=== PATIENT | female | born 1960 | race Caucasian/White ===

== ENCOUNTER → 2020-08-10 01:38 | Outpatient (CLI) | payer BC, SELFPAY ==
[2020-08-11 14:52] LABS: SARS-CoV-2 RNA PCR Negative
== END ==
PROVIDERS: PCP Physician Assistant Medical; Visit Provider Internal Medicine Gastroenterology
DX: Z01.812 Encounter for preprocedural laboratory examination (principal); Z20.822 Contact with and (suspected) exposure to COVID-19
CPT/HCPCS: C9803; U0003; U0005

== ENCOUNTER 2020-08-13 02:46 | Day surgery (SDC) | payer BC, SELFPAY ==
[2020-08-02 14:40] VITALS: BMI 30.1
[2020-08-13 07:44] VITALS: BP 129/76; PULSE 79; RESP 20; TEMP 36.5; O2SAT 99; BMI 29.7
[2020-08-13] MEDS: LACTATED RINGERS 1,000 ML 150 ML IV CONT (07:57)
--- NOTE | 2020-08-13 08:16 | WPDANESEPPF ---
Anes - Initial Pre Proc Eval Procedure: Operation Date: 08/13/20 09:00 Proposed Procedures p Screening Colonoscopy - Eduardo Joyner MD Date/Time: 08/13/20 08:16 Surgeon: Eduardo Joyner MD Pre Op Diagnosis: neoplasm screening Patient Data Age: 59 Gender: F Height: 1.52 m Weight: 69.2 kg Last Vital Signs Temp 36.5 C 08/13/20 07:44 Pulse 79 08/13/20 07:44 Resp 20 08/13/20 07:44 BP 129/76 08/13/20 07:44 Pulse Ox 99 08/13/20 07:44 Allergies Allergy/AdvReac Type Severity Reaction Status Date / Time cephalexin [From Keflex] Allergy Nausea and Verified 08/13/20 07:42 Vomiting adhesive tape AdvReac Itching Verified 08/13/20 07:42 Home Medications Medication Instructions Recorded Confirmed Type cholecalciferol (vitamin D3) 25 mcg PO DAILY 08/02/20 08/13/20 History [Vitamin D3] hydrochlorothiazide 12.5 mg PO DAILY 08/02/20 08/13/20 History lisinopril 20 mg PO DAILY 08/02/20 08/13/20 History oxybutynin chloride 10 mg PO DAILY 08/02/20 08/13/20 History Patient hx anesthesia problems: none Family hx anesthesia problems: none [facility] Past Medical History Medical History (Updated 08/12/20 @ 10:03 by John Mancera DO) Hypertension Social History Social History Smoking status: Never smoker Alcohol intake: former Substance use: never Substance use type: does not use Living arrangements: with family Gender identity (if verbalized by the patient): Female Spiritual care concerns: No Anes - Eval Final PreProcedure Day of Procedure 08/13/20 08:16 Patient weight: overweight Heart: regular rate and rhythm Lungs: clear to auscultation and normal air movement Airway: Mallampati scale class II Neurological: alert and oriented Last oral intake: >/= 8 hours ASA classification: II Emergent: no Anesthetic plan: proceed Anesthesia type and monitoring: general GIVS and standard monitoring Informed Consent: The patient's anesthetic plan and its attendant risks and benefits were discussed with the patient/family/POA. Questions were solicited and answers provided to the satisfaction of the patient/family/POA.
--- NOTE | 2020-08-13 08:37 | WPDGICN ---
Assessment and Plan Assessment and plan (1) Encounter for screening colonoscopy: Code(s): Z12.11 - Encounter for screening for malignant neoplasm of colon Status: Acute Assessment and Plan: Patient appears to be at average risk for colon polyps. Plan is for screening colonoscopy now. Further recommendations will be given after endoscopy. GI Consult Note Consult date/time: 08/13/20 08:37 HPI: Ann-Marie Saha is a 59 year old female Presents for screening colonoscopy. Patient has normal weight appetite bowel movements. She denies abdominal pain. She has had no blood in his stools. Family history is noncontributory. Review of Systems Review of Systems: All systems reviewed & are unremarkable except as noted in HPI and below PMFSH Past Medical History Medical History (Updated 08/13/20 @ 08:40 by Eduardo Joyner MD) Hypertension Social History Social History Smoking status: Never smoker Alcohol intake: former Substance use: never Substance use type: does not use Living arrangements: with family Gender identity (if verbalized by the patient): Female Spiritual care concerns: No Meds Home Medications and Allergies Home Medications Medication Instructions Recorded Confirmed Type cholecalciferol (vitamin D3) 25 mcg PO DAILY 08/02/20 08/13/20 History [Vitamin D3] hydrochlorothiazide 12.5 mg PO DAILY 08/02/20 08/13/20 History lisinopril 20 mg PO DAILY 08/02/20 08/13/20 History oxybutynin chloride 10 mg PO DAILY 08/02/20 08/13/20 History Allergies Allergy/AdvReac Type Severity Reaction Status Date / Time cephalexin [From Keflex] Allergy Nausea and Verified 08/13/20 07:42 Vomiting adhesive tape AdvReac Itching Verified 08/13/20 07:42 Vital Signs Vital Signs - 24 hr 08/13/20 07:44 Temperature 97.7 F Pulse Rate 79 Respiratory Rate 20 Blood Pressure 129/76 Pulse Oximetry 99 Exam Narrative: Exam Narrative: Physical exam reveals patient be alert. Vital signs stable. HEENT exam is unremarkable. Patient is anicteric. Lungs are clear to auscultation and percussion. Heart is without murmur or extra sounds. Abdominal exam bowel sounds are present soft nontender with no organomegaly. Digital external rectal exam is normal.
[2020-08-13 08:40] VITALS: BP 86/47; PULSE 74; RESP 20; O2SAT 100
[2020-08-13 08:50] VITALS: BP 92/51; PULSE 71; RESP 21; O2SAT 99
[2020-08-13 09:00] VITALS: BP 109/64; PULSE 66; RESP 19; O2SAT 98
== END 2020-08-13 09:14 | disposition home or self-care (01) ==
PROVIDERS: PCP Physician Assistant Medical; Visit Provider Internal Medicine Gastroenterology
PROC: 0DJD8ZZ Inspection of Lower Intestinal Tract, Via Natural or Artificial Opening Endoscopic (ICD-10-PCS; CPT 45378; principal; 2020-08-13 09:00)
DX: Z12.11 Encounter for screening for malignant neoplasm of colon (principal); K64.8 Other hemorrhoids; I10 Essential (primary) hypertension
CPT/HCPCS: 45378; J2704; J7120

== ENCOUNTER → 2022-01-05 16:27 | Outpatient (CLI) | payer BC, SELFPAY ==
--- NOTE | ~2022-01-05 | XR_ITS ---
EXAMINATION: [id number] DATE: 01/05/2022 16:57 INDICATION: Right rib pain. Fall. TECHNIQUE: A frontal view of the chest and 2 views on 3 radiographs of the right ribs were obtained. COMPARISON: None. FINDINGS: The chest demonstrates clear lungs without pneumonia, pleural effusion, or pneumothorax. Th e heart size is normal. There are fractures of right seventh and eighth ribs. IMPRESSION: 1. Acute fractures of right seventh and eighth ribs. Reviewed, dictated and finalized at location B.
== END ==
PROVIDERS: PCP Chiropractor; Visit Provider Chiropractor
DX: S22.41XA Multiple fractures of ribs, right side, initial encounter for closed fracture (principal); X58.XXXA Exposure to other specified factors, initial encounter
CPT/HCPCS: 71101

== ENCOUNTER 2023-04-08 11:00 | Outpatient (RCR) | payer BC, OTHER, SELFPAY ==
--- NOTE | 2023-01-12 14:22 | OPREHPOC ---
Outpatient Therapy Plan of Care This is a Multidisciplinary Plan of Care that may contain components documented by all disciplines (PT, OT, and ST.) PT Problem 1 PT Problem #1 Knowledge Deficit PT Goal 1 Goal [place] with HEP Target Visit 4 PT Problem 2 PT Problem #2 Pain PT Goal 1 Goal Reports no pain greater than 4/10 with 100 ft of ambulation Target Visit 8 PT Problem 3 PT Problem #3 Impaired Range of Motion PT Goal 1 Goal Patient will achieve 15 degrees of dickson ankle DF for terminal stance of gait achievement Target Visit 8 PT Goal 2 Goal Patient will achieve terminal knee extension bilaterally for even gait and cartilige health Target Visit 8 PT Problem 4 PT Problem #4 Impaired Gait PT Goal 1 Goal Patient will ambulate with even stride length bilaterally Target Visit 8
--- NOTE | 2023-01-12 14:23 | PTOPEVAL1 ---
Assessment and note entered by Adolfo Greer, PT Evaluation Information Assessment Status Evaluation Diagnosis Right knee pain, Left Knee pain, altered gait, leg weakness Onset Spring 2020 Subjective Information Pain is occurring in both knee for year. Hurts with bending and barometric changes. Cannot turn on her knees without pain. Feels some catching in her knees. Stairs aggravate her and she has difficulty with reciprocally climbing. Pain is not worse in the morning, but worse with activity. Reported Pain Level Pain Score 0: Self Report Assessment PT Clinical Summary Patient demonstrating deficits in terminal knee extension, ankle mobility, and hip mobility resulting in significant gait deviation and structural breakdown. She will benefit from skilled therapy to address these deficits. Plan of Care Interventions Electrical Stimulation,Gait Training,Hot Pack/Cold Pack,Manual Therapy,Neuro Re-education,Patient/ Caregiver Education,Therapeutic Activities, Therapeutic Exercise PT Services Indicated Yes Treatment Frequency and 2x/week for 6 weeks Duration These treatments will address the objective and functional deficits as defined above. The patient will be advanced safely and appropriately in order for the patient to progress towards his/her prior level of function. Additional exercises will be introduced and as well as a comprehensive home exercise program upon discharge, if needed, ?to ensure carryover of functional gains achieved in the clinic. This treatment plan has been reviewed and agreement upon by the patient.
--- NOTE | 2023-02-11 16:35 | OPREHPOC ---
Outpatient Therapy Plan of Care This is a Multidisciplinary Plan of Care that may contain components documented by all disciplines (PT, OT, and ST.) PT Problem 1 PT Problem #1 Knowledge Deficit PT Goal 1 Goal [place] with HEP Target Visit 4 Progress Met PT Problem 2 PT Problem #2 Pain PT Goal 1 Goal Reports no pain greater than 4/10 with 100 ft of ambulation Target Visit 8 Progress Met PT Goal 2 Goal Pt will report ability to ambulate on a hiking/ uneven surface for 10 minutes with less than 2/10 pain PT Problem 3 PT Problem #3 Impaired Range of Motion PT Goal 1 Goal Patient will achieve 15 degrees of dickson ankle DF for terminal stance of gait achievement Target Visit 8 Progress Met Comment Mild lack of right knee in terminal extension remains PT Goal 2 Goal Patient will achieve terminalknee extension bilaterally for even gait and cartilige health Target Visit 8 Progress Partially Met Comment mild lack of right knee extension in midstance through preswing PT Problem 4 PT Problem #4 Impaired Gait PT Goal 1 Goal Patient will ambulate with even strice length bilaterally Target Visit 8 Progress Met PT Problem 5 PT Problem #5 Impaired Functional Mobil PT Goal 1 Goal Pt will demo ability to carry box with 10 lbs down 8 steps without railing in reciprocal pattern Target Visit 16
--- NOTE | 2023-02-26 14:39 | PCPTNOTE ---
Patient cancelled scheduled appointment this date
--- NOTE | 2023-03-10 14:27 | PTOPPROG ---
Assessment and note entered by Migdalia Weir, PT Assessment Status Progress Diagnosis Right knee pain, Left Knee pain, altered gait, leg weakness Onset Spring 2020 Subjective Information Still has some clicking with stairs but doesn't pay attention because I'm used to it . Wore slightly heeled shoes 3 days ago and both knees are bothered by that. Reports walking down slopes really irritates her knees. Is still cautious with movements and doesn't twist on purpose. Self-perceived improvement: 60-70% improvement from the beginning Assessment PT Clinical Summary Pt continues to make slow progress with therapy related to bilat knee pain however has yet to return fully to high level activities. Significant grinding and crepitus in knees with activities, decreased strength overall R>L, difficulty with eccentric control. Thus patient will benefit from continued therapy to improve deficits and achieve maximal benefit from therapy related to pain and functional ability. Plan of Care Interventions Electrical Stimulation,Gait Training,Hot Pack/Cold Pack,Manual Therapy,Neuro Re-education,Patient/ Caregiver Educati,Therapeutic Activities, Therapeutic Exercise PT Services Indicated Yes Treatment Frequency and Cont 1-2x weekly x 4 weeks Duration These treatments will address the objective and functional deficits as defined above. The patient will be advanced safely and appropriately in order for the patient to progress towards his/her prior level of function. Additional exercises will be introduced and as well as a comprehensive home exercise program upon discharge, if needed, ?to ensure carryover of functional gains achieved in the clinic. This treatment plan has been reviewed and agreement upon by the patient.
--- NOTE | 2023-03-10 14:27 | OPREHPOC ---
Outpatient Therapy Plan of Care This is a Multidisciplinary Plan of Care that may contain components documented by all disciplines (PT, OT, and ST.) PT Problem 1 PT Problem #1 Knowledge Deficit PT Goal 1 Goal [place] with HEP Target Visit 4 Progress Met PT Problem 2 PT Problem #2 Pain PT Goal 1 Goal Reports no pain greater than 4/10 with 100 ft of ambulation Target Visit 8 Progress Met PT Goal 2 Goal Pt will report ability to ambulate on a hiking/ uneven surface for 10 minutes with less than 2/10 pain Progress Partially Met PT Problem 3 PT Problem #3 Impaired Range of Motion PT Goal 1 Goal Patient will achieve 15 degrees of dickson ankle DF for terminal stance of gait achievement Target Visit 8 Progress Met Comment Mild lack of right knee in terminal extension remains PT Goal 2 Goal Patient will achieve terminalknee extension bilaterally for even gait and cartilige health Target Visit 8 Progress Partially Met Comment mild lack of right knee extension in midstance through preswing PT Problem 4 PT Problem #4 Impaired Gait PT Goal 1 Goal Patient will ambulate with even strice length bilaterally Target Visit 8 Progress Met PT Goal 2 Goal Strength Will demo equal strength R and L knees - visit 16 Will demo 4+/5 in all tested muscles - visit 20 PT Problem 5 PT Problem #5 Impaired Functional Mobil PT Goal 1 Goal Pt will demo ability to carry box with 10 lbs down 8 steps without railing in reciprocal pattern Target Visit 16
--- NOTE | 2023-04-09 16:41 | PTOPDC ---
Assessment and note entered by Migdalia Weir, PT Assessment Status Discharge Diagnosis Right knee pain, Left Knee pain, altered gait, leg weakness Onset Spring 2020 Subjective Information Pt reports doing well with her knees. Was able to stand long periods at work with increased discomfort but this resolved with rest and ice. Reported Pain Level Pain Score 0: Self Report Assessment PT Clinical Summary Pt has attended therapy consistently for knee bilat knee pain. She reports significant improvement, her gait has normalized with exception of slight continued knee flexion in RLE. She demo's improved dorsiflexion bilat ankles but cont to be less than average. Pt has reviewed home exercises, been advised in next level of care options, and when to return to therapy if needed. Thus patient is being discharged at this time due to maximal benefit being met for plan of care.
== END 2023-04-09 16:21 | disposition home or self-care (01) ==
LOC: ANHHIPT 11:00
PROVIDERS: PCP Physician Assistant Medical; Visit Provider Physician Assistant Medical
DX: M25.561 Pain in right knee (principal); M25.562 Pain in left knee
CPT/HCPCS: 97014; 97110; 97112; 97140; 97161; 97530; 97750; G0283

== ENCOUNTER 2025-03-23 09:35 | Outpatient (CLI) | payer BC, OTHER, SELFPAY ==
--- OUTSIDE RECORDS SUMMARY | 2025-03-23 09:56 | XMS_ITS | Encounter Summary ---
Author Organization [facility] Address 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
--- OUTSIDE RECORDS SUMMARY | 2025-03-23 09:56 | XMS_ITS | Clinical Summary ---
Author Organization [facility] Address [address] 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
--- OUTSIDE RECORDS SUMMARY | 2025-03-23 09:57 | XMS_ITS | Clinical Summary ---
Author Organization [facility] Address [address] [place] [address] Care Team Providers Care Financial Aid Counselor Name Role Phone Elena Torres Primary Care Provider [phone] Allergies Active Allergy Reactions Criticality Noted Date Comments Adhesive Rash Medium 11/04/2022 Cephalexin Vomiting Low 07/09/2020 Penicillin Hives Medium 08/24/2024 Medications lisinopriL (PRINIVIL,ZESTRIL ) 10 mg tablet Take 1 tablet (10 mg total) by mouth daily 3 Active celecoxib (CeleBREX) 200 mg capsule Take by mouth daily 3 Active cetirizine (ZyrTEC) 10 mg capsule 2 Active estradioL (ESTRACE) 0.01 % (0.1 mg/gram) vaginal creamIndications: Vaginal atrophy INSERT 1 GM VAGINALLY TWICE A WEEK AT BEDTIME( SUCH WEDNESDAY AND WEDNESDAY) 42.5 g 3 5 Active mirabegron ER (MYRBETRIQ) 25 mg tablet extended release 24 hrIndications:Uri nary Urge Incontinence Take 1 tablet (25 mg total) by mouth daily 30 tablet 3 5 Active trospium XR (SANCTURA XR) 60 mg capsule,extended release 24hr Take 1 capsule (60 mg total) by mouth daily 30 capsule 3 5 Active Active Problems Problem Noted Date Diagnosed Date Urethral sphincter deficiency, intrinsic (ISD) 0 09/21/2024 Urinary frequency 11/05/2022 Pelvic floor dysfunction in female 11/05/2022 Assessment & Plan (02/04/2023 9:15 AM CDT): -we reviewed the role that her pelvic floor dysfunction as also playing in her urinary symptoms and was encouraged to continue PFPT Assessment & Plan (11/05/2022 5:24 AM CDT): On examination, we elicited Severe pain to palpation of the pelvic floor muscles (left side). Patient was also found to have muscle incoordination . We discussed the role that her pelvic floor muscle dysfunction is likely playing in her urinary symptoms. Management options for levator ani/obturator pain/spasm were discussed including pelvic floor physical therapy and vaginal icing. A prescription for PFPT was given as well as vaginal icing supplies. Feeling of incomplete bladder emptying 3 Essential hypertension 08/27/2022 3 Well woman exam with routine gynecological exam 11/14/2018 Assessment & Plan (03/01/2024 6:06 PM DEVELOPMENT REPRESENTATIVE): Pap smear: Cotest neg 08/2022 Breast cancer: Mammogram: Up to date with last mammogram today immediately prior to appointment. Results pending. Normal CBE. Osteoporosis with Dexa Scan: Not indicated Colon Cancer: Colonoscopy: Up to date; 2030 Sexually transmitted disease screening: Not indicated Diet and exercise discussed. Calcium and vitamin D intake discussed. Vaginal atrophy 06/10/2015 Assessment & Plan (02/04/2023 9:13 AM CDT): -reviewed rationale for VET and she will continue twice weekly Assessment & Plan (11/05/2022 5:24 AM CDT): We discussed the use of vaginal estrogen cream. I discussed the WHI study and the risks of systemic estrogen use. I explained that with vaginal application of 1g 2X per week minimal systemic absorption of estrogen occurs. To avoid stimulation of the uterus, estrogen should be applied to the lower 2/3 of the vagina. We discussed the risks of not using the cream including atrophy, erosion, increased risk of UTI. At the end of the discussion the patient desires to use vaginal estrogen. Mixed stress and urge urinary incontinence 06/09 Assessment & Plan (02/04/2023 9:14 AM CDT): Management options for urgency urinary incontinence were reviewed including expectant management, conservative management (pelvic floor physical therapy and behavioral modification, medical management, and surgical management (Interstim sacral neuromodulation, intravesicular botulinum toxin injection). -urinary symptoms significantly improved on [place] XR and would like to continue with this -return in 6 months follow up Assessment & Plan (11/05/2022 5:22 AM CDT): -There is no evidence of incomplete bladder emptying on PVR check today. -Management options were discussed for JUAN M including expectant, conservative (behavioral modification, pelvic floor physical therapy, incontinence pessary), medical management and surgical management (synthetic midurethral sling, sacral neuromodulation, intravesicular botulinum toxin injections). -Urine culture is being sent today to rule out a UTI as a possible cause of her symptoms. -I reviewed the behavior modification recommendations for urgency, frequency and urge incontinence inclusive of: volume restriction to 50-60 ounces per day, avoidance of bladder irritants specifically caffeine and artificial sweeteners, scheduled voids q 2-3 hours as tolerated, freeze and squeeze strategies and pelvic muscle strengthening. -Also discussed that her vaginal atrophy may be contributing to her urinary symptoms (see below). -Her pelvic floor dysfunction likely plays a role in her symptoms, and will be addressed with pelvic floor PT (see below). -She is interested in medications at this time. She has tried oxybutynin with very minimal benefit. -We discussed the two types of medications available, and the risks and benefits (particularly possible increase hypertension for beta-agonists, and for anticholinergic medications, dry eyes, dry mouth, constipation, and potential risk of impact on cognitive function/decline with fpc use). Given side effects and possible impact on cognitive function, I discussed that I typically start with mirabegron unless cost or high blood pressure is an issue. I discussed that medications often take up to 6-8 weeks to show benefit, and up to 12 for full effect. We discussed common side effects. We discussed that compliance with medication is roblero to improvement. She will return to see us 12 weeks after starting medication. The patient should call sooner if there are any significantly bothersome side effects, worsening of urinary symptoms after 4 weeks, and difficulty emptying her bladder. -Would recommend urodynamics if no significant improvement in symptoms. Encounters Date Type Department Care Team Description 03/14/2025 11:49 AM DEVELOPMENT REPRESENTATIVE - 03/14/2025 11:59 PM DEVELOPMENT REPRESENTATIVE Hospital Encounter [facility] Advanced Medicine Breast Imaging [facility] Advanced Medicine (CAM) [facility] [place], [place] [id number] Screening mammogram, encounter for Discharge Disposition: Discharge to home or self care 01/16/2025 Orders Only [facility] Medicine Obstetrics and Gynecology [address] [place] [id number] Ephraim Khan MD from Last 3 Months Surgical History Surgery Date Site/Laterality Comments [place] NEUROPLASTY &/TRANSPOS MEDIAN NRV CARPAL TUNNE Bilateral Neuroplasty Median Nerve At Carpal Tunnel - (Added by TW Conv) [place] NEURP MAJOR PRPH NRV ARM/LEG OPN OTH/THN SPEC Left Neuroplasty Ulnar Nerve - (Added by TW Conv) DILATION AND CURETTAGE OF UTERUS 04/05/1983 - 04/04/1984 INCONTINENCE SURGERY 04/05/2007 - 04/04/2008 ?TOT at [facility] Medical History Medical History Date Comments Personal history of other di seases of the circulatory system History of hypertension - (A dded by TW Conv) Urinary incontinence 1989 Hypertension 2002 Arthritis 2018 Family History Medical History Relation Name Comments Cancer Brother 1 Andrés Vega Voegele Heart attack Brother 1 Andrés H Voegele Heart attack Brother 2 Serge Hensley Voegele Cancer Father Bernardo Marquis Voegbre Prostate cancer Father Bernardo Marquis Voegbre Colon cancer Maternal Grandfather Ronal Fitzpatrickler Cancer, colon - (Added by TW Conv) Breast cancer Mother Ruth Cesar Family hi story of malignant neoplasm of breast - DX at age 63 (Added by TW Conv) Cancer Mother Ruth Cesar Hypertension Mother Ruth Cesar Ovarian cancer Neg Hx Pancreatic cancer Neg Hx Relation Name Status Comments Brother 1 Andrés Cesar Alive Brother 2 Serge Cesar Alive Father Bernardo Cesar Alive Maternal Grandfather Ronal Fishman Mother Ruth Cesar Social History Tobacco Use Types Packs/Day Years Used Date Smoking Tobacco: Never Smokeless Tobacco: Never Tobacco Cessation:Counseling Given: Not Answered Alcohol Use Standard Drinks/Week Comments Yes 0 (1 standard drink = 0.6 oz pur e alcohol) AUDIT-C Answer Date Recorded Q1: How often do you have a drink containing alc ohol? Monthly or less 03/01/2024 Q2: How many drinks containi ng alcohol do you have on a typical day when you are drinking? 1 or 2 03/01/2024 Q3: How often do you have si x or more drinks on one occasion? Monthly 03/01/2024 Comments No Sex and Gender Information Value Date Recorded Sex Assigned at Not on file Legal Sex Female 7:35 AM DEVELOPMENT REPRESENTATIVE Gender Identity Not on file Sexual Orientation Not on file Obstetrics History Para Term AB IAB SAB Ectopic Multiple Livin g Live Births 3 2 2 1 1 2 2 Date Outcome GA Total Labor Labor/2nd/3rd Weight Sex Type Anes PTL Jolynn A1 A5 Name Clin 1982 Term Living 1983 SAB 1986 Term Living Last Filed Vital Signs Vital Sign Reading Time Taken Comments Blood Pressure 149/84 09/26/2024 11:32 AM CDT Pulse - - Temperature - - Respiratory Rate - - Oxygen Saturation - - Inhaled Oxygen Concentration - - Weight 77.1 kg (170 lb) 03/14/2025 12:08 PM DEVELOPMENT REPRESENTATIVE Height 152.4 cm (5') 03/14/2025 12:08 PM DEVELOPMENT REPRESENTATIVE Body Mass Index 33.2 03/14/2025 12:08 PM DEVELOPMENT REPRESENTATIVE Plan of Treatment Health Maintenance Due Date Last Done Comments Colon Cancer Screening-Colonoscopy 1960 Depression Screening 1960 Hepatitis C Screening 1960 DTaP/Tdap/Td Vaccine (1 - Tdap) 1972 Hepatitis B Screening 10/21/1979 Zoster Vaccine (1 of 2) 10/21/2011 Cervical Cancer Screening 08/28/20232022, 11/04/2017, 11/04/2017 Covid-19 Vaccine ( season) 2024 08/13/2020, 07/16/2020 Influenza Vaccine (#1) 2024 Regular Well Visit/Exam 18-64 03/01/2025 03/01/2024, 08/27/2022, 08/26/2021, Additional history exists Breast Cancer Screening-Mammogram 03/14/2026 03/14/2025, 03/01/2024, 08/27/2022, Additional history exists Pneumococcal vaccine <65 Aged Out No longer eligible based on patient's age to complete this topic Procedures Procedure Name Priority Date/Time Associated Diagnosis Comments SCREENING MAMMOGRAM BILATERAL W BRADY Schedule Routine, Read Routine (OP Routine) 03/14/2025 12:20 PM DEVELOPMENT REPRESENTATIVE Screening mammogram, encounter for PAP AND HIGH RISK HPV, REFLEX TO GENOTYPING Routine 08/27/2022 11:54 AM CDT Screening for cervical cancer from Last 3 Months or Most Recently Relevant to Health Maintenance Results * Screening Mammogram Bilateral W Brady (03/14/2025 12:20 PM DEVELOPMENT REPRESENTATIVE) Anatomical Region Laterality Modality Breast Bilateral Mammography Impressions 03/15/2025 11:29 AM DEVELOPMENT REPRESENTATIVE Bilateral No evidence of malignancy in either breast. OVERALL BI-RADS FINAL ASSESSMENT: 1 - Negative RECOMMENDATION: Recommend bilateral annual screening mammography. Narrative 03/15/2025 11:29 AM DEVELOPMENT REPRESENTATIVE EXAMINATION: Screening Mammogram Bilateral W Brady: 03/14/2025 COMPARISON: Relevant prior studies available at the time of interpretation were reviewed, including the most recent mammogram on: 03/01/2024. TECHNIQUE: Mammography was performed with 2D and 3D digital breast tomosynthesis (DBT) images. CAD was utilized. BREAST PARENCHYMAL COMPOSITION: There are scattered areas of fibroglandular density. FINDINGS: Bilateral There is no suspicious mass, calcification, or architectural distortion in either breast. us Self Screening Mammogram IMG MAMMO PROCEDURES Fi nal Result * Pap and High Risk HPV, reflex to Genotyping (08/27/2022 11:54 AM CDT) CLINICAL INFORMATION: Routine exam [facility] PM [facility] Previous Pap NONE GIVEN [facility] Prev. Bx NONE GIVEN [facility] SOURCE: Cervix, Endocervix [facility] Pap, specimen adequacy SATISFACTORY FOR EVALUATION [facility] HPV interp Negative for intraepithelial lesion or malignancy. Atrophic pattern; predominantly parabasal cells [facility] Clinical Psychology Professor MDG, CT(ASCP) CT screening location: [place] [address] Administration [address] [id number] [facility] Comment [facility] Comment: EXPLANATORY NOTE: The Pap is a screening test for cervical cancer. It is not a diagnostic test and is subject to false negative and false positive results. It is most reliable when a satisfactory sample, regularly obtained, is submitted with relevant clinical findings and history, and when the Pap result is evaluated along with historic and current clinical information. Human papillomavirus DNA, High Risk E6/E7 Not Detected NOT DETECTED [facility] s/Kimberly [place] Comment: Not Detected High Risk HPV types (16,18,31,33,35,39,45,51,52, 56,58,59,66,68) were not detected. Other HPV types which cause anogenital lesions may be present. The significance of the other types of HPV in malignant processes has not been established. Methodology: Real Time PCR Thin prep 08/27/2022 11:5 4 AM CDT 08/28/2022 5:14 AM CDT Zuri Martinez NP LAB CYTOLOGY ORDERABLES Final Result [place] [address] Administration JO[place]PH [place] [phone] [facility] [address] [place] from Last 3 Months or Most Recently Relevant to Health Maintenance [place] [id number] * Guarantor: Ann-Marie Juarez Account Type Relation to Patient Date of Phone Billing Address Personal/Family Self 1960 [phone] x1 (Work) [address] [place] [address] [place] [facility] Care Teams Financial Aid Counselor Relationship Specialty Start Date End Date Elena Torres PA [address] [place] [id number] PCP - General Physician Spanisher 08/25/22
--- NOTE | 2025-03-23 10:17 | ECG_ITS ---
Test Date: 2025-03-23 10:26:50 Measurements Intervals [place] Rate: 71 P: 52 OK: 148 QRS: 17 QRSD: 92 T: 42 QT: 371 QTc: 404 Interpretive Statements SINUS RHYTHM NORMAL ECG No previous ECG available for comparison Electronically Signed On 03-23-2025 10:28:34 [employer] by Timmy Joseph D.O.
[2025-03-23 10:28] LABS: Hematocrit 44.7 % (37.0-47.0); Hemoglobin 14.6 g/dL (12.0-15.0)
[2025-03-23 10:54] LABS: Albumin Level 4.0 g/dL (3.5-5.1); Estimated Glomerular Filt Rate > 60; Glucose 97 mg/dL (65-110); Hemoglobin A1C 5.7 % (<5.7)
== END 2025-03-23 09:36 | disposition home or self-care (01) ==
PROVIDERS: PCP Physician Assistant Medical; Visit Provider Orthopaedic Surgery
DX: Z01.818 Encounter for other preprocedural examination (principal); M17.11 Unilateral primary osteoarthritis, right knee; R73.9 Hyperglycemia, unspecified; I10 Essential (primary) hypertension
CPT/HCPCS: 36415; 82040; 82565; 82947; 83036; 85014; 85018; 93005